=== PATIENT | female | born 1950 | race Hispanic/Latino ===

== ENCOUNTER 2021-11-16 18:19 | Emergency (ER) | payer OTHER ==
[~2021-11-16] VITALS: Ht 154.9 cm; Wt 70.3 kg
[2021-11-16 18:58] LABS: BASOPHILS % (AUTO) 0.5 % (0.0-5.0); EOSINOPHILS % (AUTO) 0.1 % (0.0-8.0); LYMPHOCYTES % (AUTO) 14.3 % (21.0-51.0); MEAN CORPUSCULAR HEMOGLOBIN 29.6 pg (27.0-33.0); MEAN CORPUSCULAR HGB CONC 32.2 g/dL (32.0-36.0); MONOCYTES % (AUTO) 2.3 % (3.0-13.0); NEUTROPHILS % (AUTO) 82.4 % (40.0-77.0); PLATELET COUNT (AUTO) 266 K/uL (130-400); RED CELL DISTRIBUTION WIDTH 12.9 % (11.0-15.5); WHITE BLOOD COUNT (AUTO) 7.4 K/uL (4.8-10.8)
[2021-11-16 19:09] LABS: CREATININE 0.7 mg/dL (0.5-1.5); POTASSIUM 4.7 mmol/L (3.5-5.1)
[2021-11-16 19:13] LABS: ALBUMIN 3.9 g/dL (3.5-5.0); BILIRUBIN,TOTAL 0.3 mg/dL (0.2-1.0); TOTAL PROTEIN, SERUM 8.1 g/dL (6.0-8.3)
[2021-11-16] MEDS ORDERED: CYCL10TA16 PO (19:39)
[2021-11-16] MEDS ORDERED: NAPR-1180 PO (19:39)
[2021-11-16 19:44] VITALS: BP 145/92
== END 2021-11-16 19:56 | disposition home or self-care (01) ==
LOC: EDH 18:19
DX: S16.1XXA Strain of muscle, fascia and tendon at neck level, initial encounter (principal); S39.012A Strain of muscle, fascia and tendon of lower back, initial encounter; S00.83XA Contusion of other part of head, initial encounter; I10 Essential (primary) hypertension; Z79.1 Long term (current) use of non-steroidal anti-inflammatories (NSAID); X58.XXXA Exposure to other specified factors, initial encounter; Y93.89 Activity, other specified; Y92.89 Other specified places as the place of occurrence of the external cause; Y99.8 Other external cause status
CPT/HCPCS: 36415; 70450; 70490; 72131; 80053; 84484; 85025